=== PATIENT | female | born 1995 | race Asian ===

== ENCOUNTER 2024-03-14 11:57 | Inpatient (IN) | payer BC ==
[~2024-03-14] VITALS: Ht 160 cm; Wt 67.6 kg
[2024-03-14] MEDS ORDERED: METHYLERGONOVINE 0.2 MG/ML AMP IM PRN (12:55)
[2024-03-14] MEDS ORDERED: CARBOPROST 250 MCG/ML AMP IM PRN (12:55)
[2024-03-14] MEDS ORDERED: LACTATED RINGERS 500 ML IV ONE (12:55)
[2024-03-14] MEDS: LACTATED RINGERS 1,000 ML IV SCH (14:05)
[2024-03-14] MEDS ORDERED: PREN-537 PO (14:08)
[2024-03-14 14:15] LABS: BASOPHILS % (AUTO) 0.2 % (0.0-2.0); EOSINOPHILS # (AUTO) 0.1 K/uL (0-0.4); EOSINOPHILS % (AUTO) 0.6 % (0.0-4.0); HEMATOCRIT 35.2 % (36-48); HEMOGLOBIN 11.2 g/dL (12.0-16.0); LYMPHOCYTES # (AUTO) 1.7 K/uL (2.5-16.5); LYMPHOCYTES % (AUTO) 13.8 % (20.5-51.1); MEAN CORPUSCULAR HEMOGLOBIN 23 pg (27-31); MEAN CORPUSCULAR HGB CONC 32 g/dL (33-37); MONOCYTES # (AUTO) 0.9 K/uL (0.8-1.0); MONOCYTES % (AUTO) 7.4 % (1.7-9.3); NEUTROPHILS # (AUTO) 9.8 K/uL (1.8-7.7); PLATELET COUNT (AUTO) 257 K/uL (140-450); RED BLOOD CELL COUNT(AUTO) 4.82 MIL/uL (4.20-5.40); RED CELL DISTRIBUTION WIDTH 15.3 % (11.6-13.7); WHITE BLOOD COUNT (AUTO) 12.6 K/uL (4.8-10.8)
[2024-03-14 14:16] LABS: APPEARANCE,URINE CLEAR (CLEAR); BILIRUBIN,URINE NEGATIVE (NEGATIVE); BLOOD, URINE TRACE-I (NEGATIVE); COLOR,URINE YELLOW (YELLOW); LEUKOCYTE ESTERASE ,URINE NEGATIVE (NEGATIVE); NITRITE, URINE NEGATIVE (NEGATIVE); PROTEIN,URINE NEGATIVE (NEGATIVE); UGLUCOSE NEGATIVE (NEGATIVE); UROBILINOGEN,URINE 0.2 EU/dL (0.2 - 1)
[2024-03-14 14:32] LABS: INR 0.8 (0.8-1.2); PARTIAL THROMBOPLASTIN TIME 28.8 secs (22-35.6); PROTHROMBIN TIME 8.5 secs (10.8-13.4)
[2024-03-14 14:39] LABS: ALBUMIN 2.7 g/dL (3.4-5.0); ANION GAP 12.5 (8-16); CALCIUM 8.6 mg/dL (8.5-10.1); CARBON DIOXIDE 23.6 mmol/L (21-32); CREATININE 0.5 mg/dL (0.6-1.3); POTASSIUM 4.1 mmol/L (3.5-5.1); TOTAL BILIRUBIN 0.2 mg/dL (0.0-1.0)
[2024-03-14] MEDS ORDERED: AMPICILLIN 2,000 MG VIAL ONE (14:50)
[2024-03-14] MEDS: AMPICILLIN 2,000 MG in NACL 0.9% MINI-BAG PLUS 100 ML IV SCH (15:16)
[2024-03-14] MEDS ORDERED: ROPIVACAINE 0.2%/NS PREMIX 200 ML EPI ONE (15:37)
[2024-03-14] MEDS: AMPICILLIN 1,000 MG in NACL 0.9% MINI-BAG PLUS 50 ML IV SCH (19:23)
[2024-03-14] MEDS: AMPICILLIN 1,000 MG VIAL ONE (23:02)
[2024-03-15] MEDS: OXYTOCIN 10 UNITS/ML VIAL IM SCH (01:08)
[2024-03-15] MEDS: OXYTOCIN/0.9 % SODIUM CHLORIDE 500 ML IV SCH (01:13)
[2024-03-15] MEDS ORDERED: AMPICILLIN 1,000 MG VIAL ONE ×2 (02:53→06:42)
[2024-03-15] MEDS: AMPICILLIN 1,000 MG VIAL ONE (06:53)
[2024-03-15] MEDS ORDERED: ROPIVACAINE 0.2%/NS PREMIX 200 ML EPI ONE (07:20)
[2024-03-15] MEDS ORDERED: BENZOCAINE/MENTHOL 20%-0.5% 60 GM CAN TP PRN (08:10)
[2024-03-15] MEDS ORDERED: OXYTOCIN 10 UNITS/ML VIAL IM PRN (08:10)
[2024-03-15] MEDS ORDERED: oxyCODONE/APAP 5/325 MG 1 TAB TAB PO PRN (08:10)
[2024-03-15] MEDS ORDERED: METHYLERGONOVINE 0.2 MG/ML AMP IM PRN (08:10)
[2024-03-15] MEDS ORDERED: METHYLERGONOVINE 0.2 MG TAB PO PRN (08:10)
[2024-03-15] MEDS ORDERED: TEMAZEPAM 15 MG CAP PO PRN (08:10)
[2024-03-15] MEDS: IBUPROFEN 800 MG TAB PO PRN (10:58)
[2024-03-15] MEDS: oxyCODONE/APAP 5/325 MG 1 TAB TAB PO PRN (15:56)
[2024-03-15] MEDS: DOCUSATE SOD/SENNA 50/8.6 MG 1 TAB PO SCH (21:18)
[2024-03-16] MEDS: MEASLES, MUMPS, AND RUBELLA 1 VIAL SQVAC ONE (04:05)
[2024-03-16 09:17] LABS: HEMOGLOBIN 8.9 g/dL (12.0-16.0)
== END 2024-03-17 14:15 | disposition home or self-care (01) | DRG 807 ==
LOC: MLD 11:57 → OBSVTOIN 12:56 → MFCC 03-15 11:00
PROVIDERS: ADMIT Obstetrics & Gynecology; ATTEND Obstetrics & Gynecology
PROC: 10D07Z6 Extraction of Products of Conception, Vacuum, Via Natural or Artificial Opening (ICD-10-PCS; principal; 2024-03-15)
PROC: 0W8NXZZ Division of Female Perineum, External Approach (ICD-10-PCS; 2024-03-15)
DX: O80 Encounter for full-term uncomplicated delivery (principal); Z37.0 Single live birth; Z3A.39 39 weeks gestation of pregnancy
CPT/HCPCS: 36415; 51702; 80053; 81003; 85018; 85025; 85610; 85730; 86592; 86762; 86886; 86900; 86901; 87340; 87653-90; 90707; 90715; J0290; J2590; J2795